=== PATIENT | male | born 2000 | race Hispanic/Latino ===

== ENCOUNTER 2020-07-14 10:05 | Emergency (ER) | payer OTHER ==
--- OUTSIDE RECORDS SUMMARY | 2020-07-14 10:07 | XMS REPORT | Continuity of Care Document ---
:2000 Author Organization [facility] t Address [address] [place] [address] [address]. [address] [place] [address] Care Team Providers Name Role Phone Lab, Fam Pob I Attending Clinician Unavailable Problems This patient has no known problems. Allergies, Adverse Reactions, Alerts This patient has no known allergies or adverse reactions. Medications This patient has no known medications. Procedures This patient has no known procedures. Encounters Start End Encounter Admission Attending Care Care Encounter Source Date/Time Date/Time Type Type Clinicians Facility Department ID 2019-11-08 2019-11-08 Laboratory Lab, [facility] [id number] 09:00:00 09:20:00 Only Fam Pob I [facility] [id number] [place] [id number] [facility] [id number] [address]al [address] One Results This patient has no known results.
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
[2020-07-14] MEDS ORDERED: DIAZEPAM 5 MG TABLET ONE (11:29)
[2020-07-14] MEDS ORDERED: HYDROCODONE/APAP 7.5/325 MG TAB ONE (11:29)
[2020-07-14] MEDS ORDERED: KETOROLAC 30 MG/ML INJ ONE (11:30)
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
[2020-07-14 12:55] LABS: Urine Blood NEGATIVE (NEG); Urine Glucose NEGATIVE (NEG); Urine Protein NEGATIVE (NEG); Urine Specific Gravity 1.025 (1.005-1.030)
[2020-07-14 13:18] VITALS: TEMP 97.1
[2020-07-14 13:19] VITALS: BP 123/84; O2SAT 100
== END 2020-07-14 13:12 | disposition home or self-care (01) ==
LOC: ER 10:05
DX: S16.1XXA Strain of muscle, fascia and tendon at neck level, initial encounter (principal); S20.223A Contusion of bilateral back wall of thorax, initial encounter; S80.12XA Contusion of left lower leg, initial encounter; S80.11XA Contusion of right lower leg, initial encounter; V49.40XA Driver injured in collision with unspecified motor vehicles in traffic accident, initial encounter; F17.210 Nicotine dependence, cigarettes, uncomplicated
CPT/HCPCS: 70450; 71250; 72125; 81003; 96372; 99284